=== PATIENT | female | born 1945 | race Caucasian/White ===

== ENCOUNTER 2024-11-18 07:14 | Emergency (ER) | payer MEDICARE, OTHER ==
[~2024-11-18] VITALS: Ht 149.9 cm; Wt 64.9 kg
[2024-11-18] MEDS ORDERED: PSEUDOEPHEDRINE30 MG PO (07:37)
[2024-11-18] MEDS ORDERED: POTASSIUM CHLO10 ME2 PO (07:37)
[2024-11-18] MEDS ORDERED: SUDOGEST30 MG PO (07:37)
[2024-11-18] MEDS ORDERED: TOPROL XL25 MG (07:37)
[2024-11-18] MEDS ORDERED: LIDOCAINE HCL 4% 1 EACH PATCH TD ONE (07:45)
[2024-11-18 08:01] VITALS: BP 144/74
== END 2024-11-18 08:01 | disposition home or self-care (01) ==
LOC: ED 07:14
DX: M62.830 Muscle spasm of back (principal); Z88.0 Allergy status to penicillin; Z88.5 Allergy status to narcotic agent; Z88.2 Allergy status to sulfonamides; Z88.8 Allergy status to other drugs, medicaments and biological substances
CPT/HCPCS: 99283; A9270

== ENCOUNTER 2025-04-25 22:30 | Emergency (ER) | payer MEDICARE, OTHER ==
[~2025-04-25] VITALS: Ht 149.9 cm; Wt 65.2 kg
[~2025-04-25 22:30] MED LIST: POTASSIUM CHLO10 ME2 PO; PSEUDOEPHEDRINE30 MG PO; SUDOGEST30 MG PO; TOPROL XL25 MG
[2025-04-25] MEDS ORDERED: ASPIRIN 81 MG CHEW PO ONE (22:45)
[2025-04-25] MEDS ORDERED: NITROGLYCERIN 0.4 MG SUBL SL PRN (22:45)
[2025-04-25] MEDS ORDERED: CHILDREN'S ASPI81 M1 PO (22:48)
[2025-04-25 23:06] LABS: BASOPHILS 0.4 % (0.1-1.2); EOSINOPHILS 2.1 % (0.7-5.8); HEMATOCRIT 38.9 % (34.1-44.9); HEMOGLOBIN 13.3 g/dL (11.2-15.7); MCH 28.9 PG (25.6-32.2); MCHC 34.2 g/dL (32.2-35.5); MCV 84.6 fL (79.4-94.8); MONOCYTES 9.5 % (4.7-12.5); NEUTROPHILS 49.9 % (34.0-71.1); PLATELET COUNT 341 K/uL (182-369)
[2025-04-25 23:24] LABS: ALBUMIN 3.3 g/dL (3.4-5.0); ALBUMIN/GLOBULIN RATIO 0.83 (1.1-2.4); ANION GAP 10.2 (7-21); BILIRUBIN, TOTAL 0.3 mg/dL (0.2-1.0); BUN/CREATININE RATIO 20.61 (6.0-28.6); CALCIUM 10.2 mg/dL (8.5-10.1); CREATININE, SERUM 0.97 mg/dL (0.55-1.02); MAGNESIUM 1.8 mg/dL (1.8-2.4); POTASSIUM 3.2 mmol/L (3.5-5.1); PROTEIN, TOTAL 7.3 g/dL (6.4-8.2)
[2025-04-25] MEDS ORDERED: FAMOTIDINE 20 MG/ 2 ML VIAL IV ONE (23:45)
[2025-04-26 00:19] LABS: BILIRUBIN, URINE NEGATIVE (negative); BLOOD/HGB, URINE NEGATIVE (Negative); KETONE, URINE NEGATIVE (Negative); LEUK ESTERASE, URINE NEGATIVE (negative); NITRITE, URINE NEGATIVE (negative); PH, URINE 6.5 (5-7)
[2025-04-26] MEDS ORDERED: POTASSIUM CHLORIDE 10 MEQ TABCR PO ONE (00:30)
[2025-04-26 01:50] VITALS: BP 149/73
--- NOTE | 2025-04-28 12:11 | EKG ---
[facility] [address] [facility] [place], [place] [address] Signed Normal sinus rhythm Left axis deviation Abnormal ECG Confirmed by Shaheed Massey DO ([id number]) on 04/28/2025 12:11:50 PM Electronically Signed By: SHAHEED MASSEY DO 04/28/25 121 PATIENT NAME: CAROLYN GARNICA Electrocardiogram DATE OF : 43 PHYSICIAN: SHAHEED MASSEY DO REPORT #: [id number] REPORT IS CONFIDENTIAL AND NOT TO BE RELEASED WITHOUT AUTHORIZATION
== END 2025-04-26 01:51 | disposition home or self-care (01) ==
LOC: ED 22:30
PROVIDERS: Internal Medicine
DX: R10.31 Right lower quadrant pain (principal); E87.6 Hypokalemia; I11.0 Hypertensive heart disease with heart failure; I50.9 Heart failure, unspecified; Z87.442 Personal history of urinary calculi; Z88.2 Allergy status to sulfonamides; Z88.0 Allergy status to penicillin; Z88.5 Allergy status to narcotic agent; Z88.8 Allergy status to other drugs, medicaments and biological substances; Z79.899 Other long term (current) drug therapy; Z79.82 Long term (current) use of aspirin
CPT/HCPCS: 36415; 71045; 74176; 80053; 81003; 83690; 83735; 84484; 85025; 93005; 93010; 96374; 99284-25